=== PATIENT | male | born 1950 | race Hispanic/Latino ===

== ENCOUNTER 2018-07-05 10:40 | Inpatient (IN) | payer MEDICARE, OTHER ==
[2018-07-02 09:43] LABS: BASOPHILS % 0.5 % (0.0-1.0); EOSINOPHILS # (AUTO) 0.2 (0.0-0.4); EOSINOPHILS % 3.1 % (0.0-6.0); HEMATOCRIT 42.5 % (38.2-49.6); HEMOGLOBIN 14.5 g/dL (14.0-18.0); LYMPHOCYTES # (AUTO) 2.3 (1.0-3.2); LYMPHOCYTES % 36.7 % (18.0-39.1); MEAN CORPUSCULAR HGB CONC 34.1 g/dL (31-35); MONOCYTES # (AUTO) 0.6 (0.2-0.8); MONOCYTES % 9.1 % (4.4-11.3); NEUTROPHILS # (AUTO) 3.2 (2.1-6.9); NEUTROPHILS % 50.4 % (38.7-80.0); PLATELET COUNT 230 x10e3/uL (140-360); RED BLOOD COUNT 4.83 x10e6/uL (4.3-5.7); RED CELL DISTRIBUTION WIDTH 12.8 % (11.7-14.4)
--- NOTE | 2018-07-02 09:43 | Diagnostic Imaging Report ---
EXAM: CHEST 2 VIEWS, PA and lateral DATE: 07/02/2018 Time stamp on exam: 9:24 AM INDICATION: Preoperative COMPARISON: None FINDINGS: LINES/TUBES: None LUNGS: No consolidations or edema. PLEURA: No effusions or pneumothorax. HEART AND MEDIASTINUM: Normal size and contour. BONES AND SOFT TISSUES: No acute findings. IMPRESSION: No acute thoracic abnormality. Signed by: Dr. Kervin Urrutia DO on 07/02/2018 9:40 AM
[2018-07-02 09:55] LABS: ANION GAP 10.9 mmol/L (8-16); BLOOD UREA NITROGEN 12 mg/dL (7-26); BUN/CREATININE RATIO 12 (6-25); CALCIUM 9.4 mg/dL (8.4-10.2); CARBON DIOXIDE 28 mmol/L (22-29); CHLORIDE 105 mmol/L (98-107); CREATININE, SERUM 1.02 mg/dL (0.72-1.25); EST GLOMERULAR FILTRATION RATE > 60 ML/MIN (60-); GLUCOSE 109 mg/dL (74-118); POTASSIUM 3.9 mmol/L (3.5-5.1); SODIUM 140 mmol/L (136-145)
[~2018-07-05] VITALS: Ht 167.6 cm; Wt 83.0 kg
--- OUTSIDE RECORDS SUMMARY | 2018-07-05 10:56 | XMS REPORT ---
[facility] Address Unknown Phone Unavailable Care Team Providers Care Intervention Nurse Name Role Phone JOSE ROMERO Unavailable Unavailable Payers Payer Name Policy Type Policy Number Effective Date Expiration Date Problems This patient has no known problems. Allergies, Adverse Reactions, Alerts This patient has no known allergies or adverse reactions. Medications This patient has no known medications. Results Test Description Test Time Test Comments Text Results Atomic Results Result Comments CHEST 2 VIEWS 2018-07-02 09:39:00 [place] [address] Patient Name: Katherin HAN MR #: [id number] : 1950 Age/Sex: 67/M Req #: [id number] Adm Physician: Ordered by: JOSE ROMERO MD Report #: [id number] Location: OR Room/Bed: Procedure: [id number] DX/CHEST 2 VIEWS Exam Date: Exam Time: REPORT STATUS: Signed EXAM: CHEST 2 VIEWS, PA and lateral DATE: 07/02/2018 Time stamp on exam: 9:24 AM INDICATION: Preoperative COMPARISON: None FINDINGS: LINES/TUBES: None LUNGS: No consolidations or edema. PLEURA: No effusions or pneumothorax. HEART AND MEDIASTINUM: Normal size and contour. BONES AND SOFT TISSUES: No acute findings. IMPRESSION: No acute thoracic abnormality. Signed by: Dr. Sotero Urrutia DO on 07/02/2018 9:40 AM Dictated By: SOTERO URRUTIA DO 9 Transcribed By: MARÍA on 07/02/18939 COPY TO: JOSE ROMERO MD
[2018-07-05] MEDS ORDERED: CLINDAMYCIN 600MG / 50ML 0 ML IV ONE ×2 (11:07→11:21)
[2018-07-05] MEDS ORDERED: GENTAMICIN 80MG/NS 100 ML 200 ML IV ONE (11:08)
[2018-07-05] MEDS ORDERED: CEFAZOLIN SOD 1 GM/NS 50ML 50 ML IV ONE (11:08)
[2018-07-05] MEDS ORDERED: CLINDAMYCIN 600MG / 50ML 50 ML IV ONE (11:23)
[2018-07-05] MEDS ORDERED: METHYLENE BLUE 1% INJ 10 ML VIAL INJ ONE (12:44)
[2018-07-05] MEDS ORDERED: ACETAMINOPHEN 1000 MG/100 ML 100 ML IV ONE (15:25)
[2018-07-05] MEDS: D5.45%NS/KCL 20MEQ 1,000 ML IV SCH (16:38)
[2018-07-05] MEDS ORDERED: ONDANSETRON HCL INJ 2MG/ML 2ML 2 MG/ML VIAL IV PRN (16:45)
[2018-07-05] MEDS ORDERED: MORPHINE SULFATE 1 MG/ML 30ML PCA IV PRN (16:45)
[2018-07-05] MEDS ORDERED: NALOXONE HCL INJ 0.4 MG/ML AMP IV PRN (16:45)
[2018-07-05] MEDS ORDERED: DIPHENHYDRAMINE HCL INJ 50 MG/ML VIAL IM PRN (16:45)
[2018-07-05] MEDS ORDERED: DIPHENHYDRAMINE HCL 25 MG CAP PO PRN (16:45)
[2018-07-05] MEDS: DOCUSATE SODIUM 100 MG CAP PO SCH (17:00)
[2018-07-05] MEDS ORDERED: MORPHINE SULFATE 1 MG/ML 30ML PCA ONE (17:14)
[2018-07-05] MEDS ORDERED: MEPERIDINE HCL INJ 25 MG/ML VIAL ONE (17:14)
--- NOTE | 2018-07-05 17:32 | NUR ---
Patient admitted to unit from PACU. Patient is AAOx3. Persian speaking only. Patient is post op radial prostatectomy. Perineal incision noted. Sutures intact. Bloody drainage noted. Lung christianson clear to auscultation. Bowel sounds present but hypoactive. Ramírez catheter in place. Hematuria noted. No c/o pain at this time. Right forearm IV in place. Iv fluids and INVESTMENT COUNSELOR in place. No s/s of distress noted. Patient tolerating clear liquids
[2018-07-05 17:51] VITALS: BP 142/68
[2018-07-05] MEDS ORDERED: INFLUENZA VIRUS VAC SPLIT INJ 0.5 ML SYR IM SCH (17:56)
[2018-07-05] MEDS ORDERED: PNEUMOCOCCAL VACCINE POLYVALENT 23 MCG/0.5 ML VIAL IM SCH (17:56)
[2018-07-05 18:04] VITALS: BP 142/68
[2018-07-05] MEDS ORDERED: SEVOFLURANE INHAL SOLN 250 ML PEN BTL ONE (18:08)
[2018-07-05] MEDS ORDERED: LIDOCAINE HCL 2% LOCAL INJ 5 ML SDV VIAL INJ ONE (18:08)
[2018-07-05] MEDS ORDERED: DEXAMETHASONE SOD PHOS INJ 4 MG/ML VIAL ONE (18:08)
[2018-07-05] MEDS ORDERED: PROPOFOL IV EMULSION 10 MG/ML 20 ML VIAL ONE (18:08)
[2018-07-05] MEDS ORDERED: EPHEDRINE SULFATE INJ 50 MG/10 ML SYR ONE (18:08)
[2018-07-05] MEDS ORDERED: GLYCOPYRROLATE INJ 1MG/ 5 ML SYR ONE (18:08)
[2018-07-05] MEDS ORDERED: NEOSTIGMINE 5 MG/5ML SYR ONE (18:08)
[2018-07-05] MEDS ORDERED: ONDANSETRON HCL INJ 2MG/ML 2ML 2 MG/ML VIAL ONE (18:08)
[2018-07-05] MEDS ORDERED: ROCURONIUM BROMIDE 10 MG/ML 5ML VIAL ONE (18:08)
[2018-07-05] MEDS ORDERED: MIDAZOLAM HCL 2 MG/2 ML VIAL ONE (18:24)
[2018-07-05] MEDS ORDERED: FENTANYL CITRATE/PF 100MCG/2 ML INJ ONE (18:24)
[2018-07-05] MEDS: PIPER-TAZ 3.375 GM 50 ML IV SCH (18:25)
--- NOTE | 2018-07-05 19:00 | NUR ---
RECEIVED PATIENT AAOX3, STABLE CONDITION, DENIES ANY NEEDS AT THIS TIME. BED LOCKED AND IN LOWEST POSITION, CALL LIGHT WITHIN EASY REACH.
[2018-07-05 19:50] VITALS: BP 136/62
[2018-07-05 19:59] LABS: BASOPHILS % 0.1 % (0.0-1.0); EOSINOPHILS % 0.1 % (0.0-6.0); HEMATOCRIT 36.1 % (38.2-49.6); HEMOGLOBIN 12.6 g/dL (14.0-18.0); LYMPHOCYTES % 8.2 % (18.0-39.1); MEAN CORPUSCULAR HGB CONC 34.9 g/dL (31-35); MEAN CORPUSCULAR VOLUME 88.9 fL (81-99); MONOCYTES # (AUTO) 0.4 (0.2-0.8); MONOCYTES % 2.8 % (4.4-11.3); NEUTROPHILS % 88.4 % (38.7-80.0); PLATELET COUNT 209 x10e3/uL (140-360); RED BLOOD COUNT 4.06 x10e6/uL (4.3-5.7); RED CELL DISTRIBUTION WIDTH 12.7 % (11.7-14.4)
[2018-07-05 20:17] LABS: ANION GAP 10.9 mmol/L (8-16); BLOOD UREA NITROGEN 14 mg/dL (7-26); BUN/CREATININE RATIO 15 (6-25); CALCIUM 8.8 mg/dL (8.4-10.2); CARBON DIOXIDE 27 mmol/L (22-29); CHLORIDE 102 mmol/L (98-107); CREATININE, SERUM 0.92 mg/dL (0.72-1.25); EST GLOMERULAR FILTRATION RATE > 60 ML/MIN (60-); GLUCOSE 196 mg/dL (74-118); POTASSIUM 3.9 mmol/L (3.5-5.1); SODIUM 136 mmol/L (136-145)
[2018-07-05 21:00] VITALS: BP 136/62
[2018-07-05] MEDS: CLINDAMYCIN 300MG 50 ML IV SCH (22:37)
[2018-07-05 23:50] VITALS: BP 108/58
[2018-07-06] VITALS (7 sets, daily range): BP systolic 101–124; BP diastolic 55–62
[2018-07-06] MEDS: PIPER-TAZ 3.375 GM 50 ML IV SCH ×3 (01:44→17:26)
[2018-07-06] MEDS: D5.45%NS/KCL 20MEQ 1,000 ML IV SCH (04:02)
[2018-07-06 06:07] LABS: BASOPHILS % 0.1 % (0.0-1.0); HEMATOCRIT 32.3 % (38.2-49.6); HEMOGLOBIN 11.1 g/dL (14.0-18.0); LYMPHOCYTES # (AUTO) 1.8 (1.0-3.2); MEAN CORPUSCULAR HEMOGLOBIN 30.7 pg (28-32); MEAN CORPUSCULAR HGB CONC 34.4 g/dL (31-35); MEAN CORPUSCULAR VOLUME 89.2 fL (81-99); MONOCYTES % 7.2 % (4.4-11.3); NEUTROPHILS % 79.3 % (38.7-80.0); PLATELET COUNT 226 x10e3/uL (140-360); RED BLOOD COUNT 3.62 x10e6/uL (4.3-5.7); RED CELL DISTRIBUTION WIDTH 12.7 % (11.7-14.4)
[2018-07-06] MEDS: CLINDAMYCIN 300MG 50 ML IV SCH (06:17)
[2018-07-06 06:20] LABS: ANION GAP 10.7 mmol/L (8-16); BLOOD UREA NITROGEN 13 mg/dL (7-26); BUN/CREATININE RATIO 12 (6-25); CALCIUM 8.5 mg/dL (8.4-10.2); CARBON DIOXIDE 26 mmol/L (22-29); CHLORIDE 106 mmol/L (98-107); CREATININE, SERUM 1.07 mg/dL (0.72-1.25); EST GLOMERULAR FILTRATION RATE > 60 ML/MIN (60-); GLUCOSE 138 mg/dL (74-118); POTASSIUM 3.7 mmol/L (3.5-5.1); SODIUM 139 mmol/L (136-145)
[2018-07-06] MEDS ORDERED: HYDROCODONE/APAP 7.5MG-325MG 1 EA TAB PO PRN ×2 (08:30→08:45)
[2018-07-06] MEDS ORDERED: KETOROLAC TROMETHAMINE 30 MG/ML VIAL IV PRN ×2 (08:30→08:45)
[2018-07-06] MEDS: SENNOSIDES 8.6 MG TAB PO SCH ×2 (09:21→17:26)
[2018-07-06] MEDS: DOCUSATE SODIUM 100 MG CAP PO SCH ×2 (09:21→17:26)
--- NOTE | 2018-07-06 10:00 | NUR ---
CEREAL SUPERVISOR MORPHINE PUMP DC PER MD ROMERO ORDERS , VERIFIED WASTE WITH RAVEN MANJARREZ INSTRUCTED PT TO CALL FOR PRN MED IF NEEDED
[2018-07-06] MEDS: ACETAMINOPHEN/CODEINE 300MG - 30MG TAB PO PRN ×2 (13:32→20:47)
--- NOTE | 2018-07-06 13:45 | NUR ---
Visit made by the Spiritual Care Department Pastoral Visitor, Yaritza Small. PV provided pastoral presence, prayer, hospitality, and supportive listening. Pastoral Visitor informed pt/family of the scope of [employer] Services and availability. BERNIE GUZMAN Uniform Attendant Spiritual Care Department O: [phone] Pager: [phone] ([phone] + number calling from)
--- NOTE | 2018-07-06 15:52 | NUR ---
Nutrition Screen Note RD Recommendation for Physician: -Continue regular diet as ordered Plan of Care: RD following, monitoring for tolerance and adequacy Nutrition reason for involvement: Nutrition Risk Trigger MST Primary Diagnose(s): prostate cancer s/p prostate resection on 07/05 PMH: no H&P indicated Ht: 66in Wt: 184.01lb BMI: 29.7kg/m2 IBW: 142lb RD Assessment: (07/06) Chart reviewed. Labs and meds reviewed. 67yo M, who was s/p prostate resection 07/05. POD 1. HbA1c at 5.6%. . 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 Pt denied chewing/swallowing problems and nausea/vomiting. Pt reported good appetite with adequate meal intake at 75%. Will continue to monitor and follow. Current Diet: regular diet Malnutrition Evaluation (07/06) The patient does not meet criteria for a specified degree of malnutrition at this time. Will re-evaluate at follow-up as appropriate. Diet Education Needs Assessment: Diet education not indicated. Nutrition Care Level: low Signed: Grecia Valladares, MS, RD, LD
--- NOTE | 2018-07-06 19:00 | NUR ---
RECEIVED PATIENT AAOX3, NO S/S OF DISTRESS OBSERVED, FAMILY MEMBER TO BEDSIDE. DENIES NEEDS AT THIS TIME. BED LOCKED AND IN LOWEST POSITION, CALL LIGHT WITHIN EASY REACH.
[2018-07-07] VITALS (11 sets, daily range): BP systolic 100–138; BP diastolic 47–66
[2018-07-07] MEDS: PIPER-TAZ 3.375 GM 50 ML IV SCH ×3 (02:00→17:28)
[2018-07-07 06:13] LABS: BASOPHILS % 0.3 % (0.0-1.0); EOSINOPHILS # (AUTO) 0.1 (0.0-0.4); EOSINOPHILS % 0.9 % (0.0-6.0); HEMATOCRIT 32.4 % (38.2-49.6); LYMPHOCYTES # (AUTO) 3.6 (1.0-3.2); LYMPHOCYTES % 32.6 % (18.0-39.1); MEAN CORPUSCULAR HEMOGLOBIN 30.6 pg (28-32); MEAN CORPUSCULAR VOLUME 90.3 fL (81-99); MONOCYTES % 8.9 % (4.4-11.3); NEUTROPHILS # (AUTO) 6.3 (2.1-6.9); PLATELET COUNT 201 x10e3/uL (140-360); RED BLOOD COUNT 3.59 x10e6/uL (4.3-5.7); RED CELL DISTRIBUTION WIDTH 13.2 % (11.7-14.4)
[2018-07-07 06:40] LABS: ANION GAP 9.8 mmol/L (8-16); BLOOD UREA NITROGEN 15 mg/dL (7-26); BUN/CREATININE RATIO 14 (6-25); CALCIUM 8.5 mg/dL (8.4-10.2); CARBON DIOXIDE 28 mmol/L (22-29); CHLORIDE 106 mmol/L (98-107); CREATININE, SERUM 1.06 mg/dL (0.72-1.25); EST GLOMERULAR FILTRATION RATE > 60 ML/MIN (60-); GLUCOSE 94 mg/dL (74-118); POTASSIUM 3.8 mmol/L (3.5-5.1); SODIUM 140 mmol/L (136-145)
[2018-07-07] MEDS: SENNOSIDES 8.6 MG TAB PO SCH (09:00)
--- NOTE | 2018-07-07 10:00 | NUR ---
NURSE CALLED TO PT LYING ON FLOOR, PT INFORMED NURSE HE GOT DIZZY FELL BACK AND ASSISTED TO FLOOR, VS 105/69, HR 97, PT ASSISTED UP AND AMBULATED WITH ASSISTANCE TO BED. PT PLACED IN BED AND BECAME UNRESPONSIVE RAPID RESPONSE CALLED, TEAM ARRIVED, DR PINO, NOTIFIED, DR ROMERO AT BEDSIDE, ORDERS RECEIVED AND PLACED IN CHART. PT VS STABLE, BOLUS INFUSED WILL CONTINUE TO MONITOR Addendum: 07/07/18 at 1330 by Carmencita Masters RN FAMILY ASSISTED PT TO FLOOR PER PT REQUEST
[2018-07-07] MEDS ORDERED: SODIUM CHLORIDE 0.9% 1000ML 1,000 ML ONE (10:07)
--- NOTE | 2018-07-07 10:18 | NUR ---
SPOKE WITH KO AT MD COLE'S OFFICE, MADE AWARE OF CONSULT, AWAITING CALL BACK
[2018-07-07] MEDS: DOCUSATE SODIUM 100 MG CAP PO SCH ×2 (10:25→17:28)
--- NOTE | 2018-07-07 10:25 | NUR ---
ASSESSMENT COMPLETE, ANSWERS QUESTIONS APPROPRIATELY, GARCIA TO BSD WITH FLORA URINE NOTED, BOLUS INFUSING TO L HAND 18G DENIES PAIN AT THIS TIME, LILIBETH DRAIN NOTED TO RECTUM, CALL LIGHT IN REACH WILL CONTINUE TO MONITOR
[2018-07-07] MEDS ORDERED: SODIUM CHLORIDE 0.9% 1000ML 500 ML IV ONE (10:45)
--- NOTE | 2018-07-07 11:00 | NUR ---
DSG APPLIED TO RECTUM PER ORDERED,
--- NOTE | 2018-07-07 14:21 | NUR ---
EDUCATED ABOUT IMM, SIGNED, FILED IN CHART, WITH COPY LEFT WITH FAMILY AT BEDSIDE.
--- NOTE | 2018-07-07 15:12 | NUR ---
DSG TO RECTUM CHANGED PER ORDERED, WITH GOLFBALL SIZE BROWNISH DRAINAGE NOTED FROM LILIBETH .
--- NOTE | 2018-07-07 17:31 | NUR ---
dsg to rectum changed, brownish golfball size drainage noted to abd pad, will continue to monitor
--- NOTE | 2018-07-07 18:55 | NUR ---
BED SIDE SHIFT REPORT PERFORMED WITH OFF GOING NURSE Jeremy LACEY RN. PT IS AAOX3, RR EVEN AND NON-LABORED, O2 BY NC AT 2L. NO S/SX OF DISTRESS NOTED. DRESSING TO RECTUM NOTED TO BE CDI. LEFT PT LAYING SEMI FOWLERS IN BED, BED IN LOW LOCKED POSITION, SIDE RAILS UPX2, CALL LIGHT AND PHONE WITHIN REACH.
[2018-07-07 18:56] LABS: BASOPHILS % 0.2 % (0.0-1.0); EOSINOPHILS # (AUTO) 0.1 (0.0-0.4); HEMATOCRIT 32.6 % (38.2-49.6); HEMOGLOBIN 11.2 g/dL (14.0-18.0); LYMPHOCYTES # (AUTO) 2.6 (1.0-3.2); LYMPHOCYTES % 23.8 % (18.0-39.1); MEAN CORPUSCULAR HEMOGLOBIN 30.9 pg (28-32); MEAN CORPUSCULAR HGB CONC 34.4 g/dL (31-35); MEAN CORPUSCULAR VOLUME 90.1 fL (81-99); MONOCYTES # (AUTO) 0.9 (0.2-0.8); MONOCYTES % 8.4 % (4.4-11.3); NEUTROPHILS # (AUTO) 7.3 (2.1-6.9); PLATELET COUNT 209 x10e3/uL (140-360); RED BLOOD COUNT 3.62 x10e6/uL (4.3-5.7); RED CELL DISTRIBUTION WIDTH 13.2 % (11.7-14.4)
[2018-07-07 19:25] LABS: ANION GAP 11.6 mmol/L (8-16); BLOOD UREA NITROGEN 12 mg/dL (7-26); BUN/CREATININE RATIO 12 (6-25); CALCIUM 8.7 mg/dL (8.4-10.2); CARBON DIOXIDE 25 mmol/L (22-29); CHLORIDE 102 mmol/L (98-107); CREATININE, SERUM 1.03 mg/dL (0.72-1.25); EST GLOMERULAR FILTRATION RATE > 60 ML/MIN (60-); GLUCOSE 144 mg/dL (74-118); POTASSIUM 3.6 mmol/L (3.5-5.1); SODIUM 135 mmol/L (136-145)
[2018-07-07] MEDS: ACETAMINOPHEN/CODEINE 300MG - 30MG TAB PO PRN (21:24)
--- NOTE | 2018-07-07 21:24 | NUR ---
ABD PAD TO RECTUM CHANGED AT THIS TIME. INCISION NOTED TO BE CDI, SUTURES INTACT, LILIBETH DRAIN DRAINING BROWN/SEROUS FLUID. 3X2 INCH DRAINAGE NOTED TO ABD PAD.
--- NOTE | 2018-07-07 21:25 | NUR ---
PT SPO2 NOTED TO BE 98% WITH O2 BY NC AT 2L. DECREASE O2 BY NC TO 1L. WILL CONTINUE TO MONITOR.
--- NOTE | 2018-07-07 21:42 | Consultation ---
DATE OF CONSULTATION: 07/07/2018 Cardiology Consultation. REASON FOR CONSULTATION: Syncope. HISTORY OF PRESENT ILLNESS: This is a 67-year-old man, who has a history of prostate cancer, who underwent a radical prostatectomy on the 05 of July. The patient was in the restroom this morning, had a bowel movement and passed gas, amando from a seated position, felt lightheaded, dizzy, grabbed the wall, then lost consciousness. He denies any chest pain, shortness of breath, or palpitations during this episode. The patient also became lightheaded and dizzy upon ambulation back to his bed and potentially had another syncopal episode. He has no prior syncopal episodes of significance. He denies any cardiovascular history. He denies any chest pain, shortness of breath, palpitations, lower extremity swelling, orthopnea, or PND in the past. The patient was noted to be mildly hypotensive during these episodes with a normal glucose, and a 12-lead electrocardiogram showing normal sinus rhythm. REVIEW OF SYSTEMS: A 12-point review of systems was conducted, is negative, otherwise, as stated above in the HPI. PAST MEDICAL HISTORY: Prostate cancer. PAST SURGICAL HISTORY: Radical prostatectomy. FAMILY HISTORY: No premature coronary artery disease or sudden cardiac . SOCIAL HISTORY: No illicit drug use, alcohol use, or tobacco use. ALLERGIES: NO KNOWN DRUG ALLERGIES. MEDICATIONS: See medication reconciliation form. PHYSICAL EXAMINATION: VITAL SIGNS: Temperature is 99.6, heart rate is 84, respirations are 18, blood pressure is 127/59, oxygen saturation 99% on 2 L nasal cannula. GENERAL: Well-appearing male, lying comfortably in bed. HEAD: Normocephalic, atraumatic. EYES: Extraocular muscles are intact. Conjunctivae are clear. NECK: No JVD. No bruits. CARDIOVASCULAR: Regular rate and rhythm. Normal S1 and S2. LUNGS: Clear to auscultation bilaterally. No wheezing or rales. ABDOMEN: Soft, nontender, nondistended. Normoactive bowel sounds. EXTREMITIES: No clubbing, cyanosis, or edema. VASCULAR: 2+ pulses. SKIN: Warm, dry, and intact. NEUROLOGIC: No focal deficits noted. Cranial nerves grossly intact. PSYCHIATRIC: Normal mood and affect. LABORATORY: All laboratory tests were reviewed. A 12-lead electrocardiogram showed normal sinus rhythm. IMPRESSION: 1. Syncope. 2. Orthostatic hypotension. 3. Prostate cancer. 4. Anemia. RECOMMENDATIONS: The patient likely became hypotensive after having a bowel movement, straining, and became orthostatic. Fluid bolus was given. Continue to monitor on telemetry. We will order a 2D echocardiogram. I do not hear any carotid bruits. Continue to monitor H and H as his hemoglobin has dropped since admission. Thank you for the consultation. We will follow along with you. Juan Hare DO BM/MODL /[id number]
[2018-07-08] VITALS (8 sets, daily range): BP systolic 102–157; BP diastolic 50–70
--- NOTE | 2018-07-08 00:11 | NUR ---
DRESSING TO PERINEAL CHANGED. BROWN/SEROUS FLUID NOTED TO DRESSING 2X2 INCH OF DRAINAGE NOTED TO ABD PAD.
[2018-07-08] MEDS: PIPER-TAZ 3.375 GM 50 ML IV SCH ×3 (02:21→18:23)
[2018-07-08 05:56] LABS: BASOPHILS % 0.2 % (0.0-1.0); EOSINOPHILS # (AUTO) 0.2 (0.0-0.4); EOSINOPHILS % 1.7 % (0.0-6.0); HEMATOCRIT 31.9 % (38.2-49.6); LYMPHOCYTES # (AUTO) 2.9 (1.0-3.2); LYMPHOCYTES % 25.4 % (18.0-39.1); MEAN CORPUSCULAR HEMOGLOBIN 31.3 pg (28-32); MEAN CORPUSCULAR HGB CONC 34.5 g/dL (31-35); MEAN CORPUSCULAR VOLUME 90.9 fL (81-99); MONOCYTES # (AUTO) 1.1 (0.2-0.8); MONOCYTES % 9.6 % (4.4-11.3); NEUTROPHILS # (AUTO) 7.2 (2.1-6.9); NEUTROPHILS % 62.6 % (38.7-80.0); PLATELET COUNT 213 x10e3/uL (140-360); RED BLOOD COUNT 3.51 x10e6/uL (4.3-5.7); RED CELL DISTRIBUTION WIDTH 13.3 % (11.7-14.4)
[2018-07-08 06:12] LABS: ANION GAP 9.5 mmol/L (8-16); BLOOD UREA NITROGEN 11 mg/dL (7-26); BUN/CREATININE RATIO 11 (6-25); CALCIUM 8.9 mg/dL (8.4-10.2); CARBON DIOXIDE 27 mmol/L (22-29); CHLORIDE 101 mmol/L (98-107); CREATININE, SERUM 1.02 mg/dL (0.72-1.25); EST GLOMERULAR FILTRATION RATE > 60 ML/MIN (60-); GLUCOSE 106 mg/dL (74-118); POTASSIUM 3.5 mmol/L (3.5-5.1); SODIUM 134 mmol/L (136-145)
[2018-07-08] MEDS: DOCUSATE SODIUM 100 MG CAP PO SCH ×2 (07:42→18:23)
[2018-07-08] MEDS: ACETAMINOPHEN/CODEINE 300MG - 30MG TAB PO PRN ×3 (07:42→23:38)
--- NOTE | 2018-07-08 07:47 | NUR ---
ASSESSMENT COMPLETE NO DISTRESS NOTED, CO PAIN TO BACK, MEDICATED WITH PRN MEDS, R AC 20G NO SS OF INFILTRATION NOTED, NO OTHER CO VOICED CALL LIGHT IN REACH WILL CONTINUE TO MONITOR
--- NOTE | 2018-07-08 07:50 | NUR ---
PT CO NUMBNESS TO RIGHT LEG, SPOKE WITH DR PINO, NEW ORDERS NOTED,
--- NOTE | 2018-07-08 10:02 | Diagnostic Imaging Report ---
Lumbar spine series, 5 views dated 07/08/2018. History: Status post fall with right leg numbness; history of prostate cancer. Comparison: <None available>. Discussion: The soft tissues are unremarkable. No lytic or blastic process. The alignment of the lumbar spine is normal. There is no evidence of fracture, spondylolisthesis or spondylolysis. Minor degenerative spurring of the spine. Disc space narrowing at L4-L5. There are clips in the region of the prostate gland. IMPRESSION: Mild degenerative changes of the spine with significant disc space narrowing at L4-L5. Signed by: Dr. Kervin Urrutia DO on 07/08/2018 9:58 AM
--- NOTE | 2018-07-08 10:05 | NUR ---
PT AMBULATING IN [place] WITH PHYSICAL THERAPY.
--- NOTE | 2018-07-08 10:07 | Diagnostic Imaging Report ---
Exam: AP pelvis with cone-down views of both hips; 5 views total dated 07/08/2018. History: Status post fall with right leg numbness; history of prostate cancer Comparison: None available Findings: There is no fracture or dislocation. Multiple clips overlying the prostate. There is a catheter present within the urethra. Mild joint space narrowing in both hips with spurring of the superior lateral aspect of the acetabula bilaterally. Injection granulomas of the gluteal region. Sclerotic foci involving the subtrochanteric region of the right femoral shaft likely is a bone island. Impression: Mild degenerative changes without acute bony abnormality. Signed by: Dr. Kervin Urrutia DO on 07/08/2018 10:04 AM
--- NOTE | 2018-07-08 10:19 | NUR ---
PT SITTING IN CHAIR, STATES HE IS DIZZY, BECOMES UNRESPONSIVE, PT RAPID CALLED PT TRANSFERRED TO BED WITH ASSISTANCE, TEAM ARRIVED. FAMILY AT BEDSIDE, DR PINO NOTIFIED, ORDERS PLACED IN SYSTEM.
[2018-07-08] MEDS ORDERED: SODIUM CHLORIDE 0.9% 1000ML 2,000 ML IV SCH (10:30)
--- NOTE | 2018-07-08 10:40 | NUR ---
PT RECEIVING 2L BOLUS FOR RAPID RESPONSE ORDERED, LABS DRAWN AND SENT, BLE DOPPLER ORDERED, VS STABLE, WILL CONTINUE TO MONITOR
[2018-07-08 10:52] LABS: MAGNESIUM 2.4 MG/DL (1.3-2.1)
--- NOTE | 2018-07-08 10:52 | NUR ---
ASSESSMENT: Spiritual distress Professor Of Economics responded to Code. Pt's and [id number] in hallway. Pt's expressed emotions thru words and tears. Intervention: Provided pastoral presence and calming presence. Outcome: Pt's family expressed appreciation for support. BERNIE Miranda Spiritual Care Department O: [phone] Pager: [phone] ([phone] number calling from)
[2018-07-08] MEDS: SODIUM CHLORIDE 0.9% 1000ML 1,000 ML IV SCH ×2 (11:00→22:16)
--- NOTE | 2018-07-08 11:00 | NUR ---
DSG CHANGED PER ORDERED, GOLFBALL SIZE DRAINAGE NOTED TO PAD,
[2018-07-08] MEDS: LIDOCAINE 5% PATCH TP SCH (11:30)
--- NOTE | 2018-07-08 11:40 | NUR ---
SPOKE WITH DR. PINO RE: LAB RESULTS, NEW ORDERS NOTED.
--- NOTE | 2018-07-08 12:47 | NUR ---
CASE MANAGEMENT INITIAL ASSESSMENT Nremt to bedside to discuss plan of care with patient/family. CM/SW role and care transitions discussed. Anticipated discharge plan discussed along with duration of care. CM discussed patients right to make decisions in care. CM work hours given. Patient lives: PATIENT LIVES IN 1 STORY HOME WITH ANGEL Admit/Transfer: ED Hospital/ER visits since last admit: NO POA/Emergency contact: ANGEL [place] [phone] Current/Previous Home Health: NONE PCP/Follow-up Care: DR. PRAFUL JORDAN Current/Previous DME: NONE Medications (referring to index hospitalization or the first time you were in the hospital) a. Were changes made in your medications when you were in the hospital on [date of index hospitalization]? Yes No Not sure Explain: Note: If no or not sure, please skip to question d b. Did you understand the changes? Yes No Explain: c. Were you able to obtain your new medications right away? Yes Non/a SNF only Explain: d. Were you able to take your medications like the doctor wanted you to? Yes No Explain: e. Did the hospital give you an accurate, easy to understand list of medications when you left? Yes No n/a SNF only Explain: Scale of 1-10 how comfortable does patient feel with disease management in outpatient setting: Other Services: NONE Employment Status: RETIRED Areas of Concerns: DIZZINESS AND LOSS OF CONSCIOUSNESS Referral Needs: NONE AT THIS TIME Education Needs: NONE AT THIS TIME IMM/DOUGLAS given and signed (if applicable): IMM Goal for discharge: DISCHARGE HOME WITH NO NEEDS CM left business card at the bedside with contact information. Name and number was also written on the patients whiteboard. Patient verbalized understanding of discussion. CM will follow-up with ongoing discharge and transition of care needs.
--- NOTE | 2018-07-08 13:00 | NUR ---
DSG CHANGED PER ORDERED, GOLFBALL SIZE BROWNISH DRAINAGE NOTED,
[2018-07-08] MEDS: MIDODRINE 2.5 MG TAB PO SCH ×2 (14:15→18:22)
[2018-07-08] MEDS ORDERED: SODIUM CHLORIDE 0.9% 1000ML 1,000 ML IV SCH (15:00)
--- NOTE | 2018-07-08 15:00 | NUR ---
DSG CHANGED PER ORDERED, GOLF BALL SIZE BROWNISH DRAINAGE NOTED,
--- NOTE | 2018-07-08 16:30 | Diagnostic Imaging Report ---
Exam: Right knee 3 views History: Pain Comparison: None. Findings: No fracture or malalignment. Mild degenerative arthrosis of the osteophyte formation. Quadriceps enthesophyte. Small joint effusion. Impression: No acute osseous abnormality Mild degenerative arthrosis of the knee. Signed by: Dr. Wilber Huagn M.D. on 07/08/2018 4:26 PM
--- NOTE | 2018-07-08 19:56 | Progress Note ---
DATE: 07/08/2018 Cardiology Progress Note SUBJECTIVE: The patient reportedly had another syncopal episode after completing physical therapy and walking. When he was seated, he evidently lost consciousness. Now, the patient states that he cannot move his left lower extremity due to knee pain. He also reports lower extremity numbness. OBJECTIVE: VITAL SIGNS: Temperature is 99.5, heart rate 74, respirations are 20, blood pressure is 120/56, and ox saturation 99% on room air. GENERAL: He is a well-appearing man, lying comfortably in bed. HEENT: Head is normocephalic, atraumatic. Eyes, the extraocular muscles are intact. Conjunctivae are clear. NECK: No jugular venous distention. No carotid bruits. CARDIOVASCULAR: He has regular rate and rhythm. No murmurs. LUNGS: Clear to auscultation. ABDOMEN: Soft, nontender. EXTREMITIES: There is no edema. He has normal sensation. He has pain upon palpation of the right knee, which appears mildly more swollen than the left knee. CARDIOVASCULAR MEDICATIONS: Reviewed. Telemetry monitoring revealed normal sinus rhythm. Echocardiogram shows preserved left ventricular systolic function and normal valves. Lower extremity venous Doppler showed no deep venous thrombosis. IMPRESSION: 1. Syncope. 2. Knee pain. 3. Orthostatic hypotension. 4. Prostate cancer. 5. Anemia. RECOMMENDATIONS: The patient does not appear to have a cardiovascular cause for his syncope events. The patient has multiple nonspecific symptoms, which do not correlate. We will defer knee pain workup to Primary team. We will check orthostatic vital signs prior to administration. We will continue to follow along. Juan Hare DO BM/MODL /[id number]
--- NOTE | 2018-07-08 23:50 | NUR ---
DRESSING TO RECTUM CHANGED. 3X4 IN DRAINAGE TO DRESSING NOTED.
[2018-07-09] VITALS (9 sets, daily range): BP systolic 97–124; BP diastolic 52–64
[2018-07-09] MEDS: PIPER-TAZ 3.375 GM 50 ML IV SCH ×3 (02:24→17:01)
[2018-07-09 06:00] LABS: BASOPHILS % 0.3 % (0.0-1.0); EOSINOPHILS # (AUTO) 0.4 (0.0-0.4); EOSINOPHILS % 2.9 % (0.0-6.0); HEMATOCRIT 30.4 % (38.2-49.6); HEMOGLOBIN 10.6 g/dL (14.0-18.0); LYMPHOCYTES # (AUTO) 2.5 (1.0-3.2); LYMPHOCYTES % 21.1 % (18.0-39.1); MEAN CORPUSCULAR HEMOGLOBIN 31.6 pg (28-32); MEAN CORPUSCULAR HGB CONC 34.9 g/dL (31-35); MEAN CORPUSCULAR VOLUME 90.7 fL (81-99); MONOCYTES # (AUTO) 1.1 (0.2-0.8); MONOCYTES % 9.4 % (4.4-11.3); NEUTROPHILS # (AUTO) 7.9 (2.1-6.9); NEUTROPHILS % 65.7 % (38.7-80.0); PLATELET COUNT 238 x10e3/uL (140-360); RED BLOOD COUNT 3.35 x10e6/uL (4.3-5.7); RED CELL DISTRIBUTION WIDTH 13.2 % (11.7-14.4)
[2018-07-09 06:25] LABS: ANION GAP 10.1 mmol/L (8-16); BLOOD UREA NITROGEN 11 mg/dL (7-26); BUN/CREATININE RATIO 12 (6-25); CALCIUM 8.7 mg/dL (8.4-10.2); CARBON DIOXIDE 26 mmol/L (22-29); CHLORIDE 107 mmol/L (98-107); CREATININE, SERUM 0.94 mg/dL (0.72-1.25); EST GLOMERULAR FILTRATION RATE > 60 ML/MIN (60-); GLUCOSE 103 mg/dL (74-118); POTASSIUM 4.1 mmol/L (3.5-5.1); SODIUM 139 mmol/L (136-145)
--- NOTE | 2018-07-09 07:12 | NUR ---
Rcvd patient in report this am. Patient is asleep in bed at this time. No s/s of distress noted. Spouse at bedside
[2018-07-09] MEDS: DOCUSATE SODIUM 100 MG CAP PO SCH (08:50)
[2018-07-09] MEDS: LIDOCAINE 5% PATCH TP SCH (08:50)
[2018-07-09] MEDS: ACETAMINOPHEN/CODEINE 300MG - 30MG TAB PO PRN ×2 (08:51→14:51)
[2018-07-09] MEDS: MIDODRINE 2.5 MG TAB PO SCH ×2 (08:51→11:49)
--- NOTE | 2018-07-09 10:58 | NUR ---
R 20g SL removed. catheter tip in tact. pressure dressing applied.
--- NOTE | 2018-07-09 12:23 | NUR ---
Patient is AAox3. Romansh speaking only. Patient is post op prostatectomy. Incision to perineal area clean and dry. Dressing changed this am. No c/o pain in that area. Lung christianson clear to auscultation. Bowel sounds present x4. No edema noted to BLE. Patient c/o pain in his right knee. Pain patch applied. Ramírez catheter in place with green urine. No s/s of distress noted.
--- NOTE | 2018-07-09 14:35 | NUR ---
EDUCATED ABOUT IMM, SIGNED, FILED IN CHART, WITH COPY LEFT WITH FAMILY AT BEDSIDE.
[2018-07-09] MEDS ORDERED: MIDODRINE 2.5 MG TAB PO ONE (14:45)
--- NOTE | 2018-07-09 14:59 | NUR ---
Orthostatic VS obtained: Supine: 94/46, 68. Sittin/54, 80. Standin/54, 87
[2018-07-09] MEDS ORDERED: OMEPRAZOLE 20 MG CAP PO SCH (15:00)
[2018-07-09] MEDS ORDERED: MAGNESIUM HYDROXIDE 30 ML UDC ONE (15:22)
[2018-07-09] MEDS ORDERED: MIDODRINE 2.5 MG TAB ONE (15:22)
[2018-07-09] MEDS: MAGNESIUM HYDROXIDE 30 ML UDC PO PRN (15:27)
--- NOTE | 2018-07-09 15:29 | NUR ---
CM SPOKE TO PATIENT AT BEDSIDE REGARDING ROLLING WALKER NEED. PATIENT GIVEN CHOICE FOR [employer] TO PROVIDE ROLLING WALKER. PATIENT CHOSE [facility]- [facility] [address]. PATIENT SIGNED CHOICE FOR ROLLING WALKE RTO BE PROVIDED BY [employer] [facility] WALKER DELIVERED TO THE BEDSIDE. [employer] FORM FILLED OUT AND STAPLED TO ORDER AND FACESHEET. FORM PLACED AT THE FRONT OF THE CHART FOR DR. PINO TO SIGN. RNMOMO (BEDSIDE NURSE) NOTIFIED. MARIO SPOKE TO PATIENT REGARDING HOME HEALTH ORDERS. PATIENT GIVEN CHOICES FOR HOME HEALTH COMPANIES. PATIENT HOME HEALTH CHOICE SIGNED FOR [facility] AND [employer]. [facility] DOES NOT TAKE PATIENT INSURANCE SO CLINICAL SENT TO [facility]. CHOICE LETTER PLACED IN CHART. CLINICAL SENT TO [facility]. [facility] JCARLOS SCHULTZ [phone] Addendum: 07/09/18 at 1607 by Padmini Cohen CM FORM SIGNED BY DR. PINO AND PLACED IN PACU BASKET WITH OTHER SIGNED FORMS.
[2018-07-09 16:21] LABS: ANION GAP 9.6 mmol/L (8-16); BLOOD UREA NITROGEN 12 mg/dL (7-26); BUN/CREATININE RATIO 13 (6-25); CALCIUM 8.7 mg/dL (8.4-10.2); CARBON DIOXIDE 25 mmol/L (22-29); CHLORIDE 104 mmol/L (98-107); CREATININE, SERUM 0.95 mg/dL (0.72-1.25); EST GLOMERULAR FILTRATION RATE > 60 ML/MIN (60-); GLUCOSE 112 mg/dL (74-118); POTASSIUM 3.6 mmol/L (3.5-5.1); SODIUM 135 mmol/L (136-145)
[2018-07-09] MEDS: SENNA-S TABLET PO SCH (17:01)
[2018-07-09] MEDS: CELECOXIB 200 MG CAP PO SCH (17:01)
[2018-07-09] MEDS: MIDODRINE HCL 5 MG TABLET PO SCH (17:01)
[2018-07-09] MEDS: PANTOPRAZOLE SOD 40 MG TABEC PO SCH (17:01)
[2018-07-09] MEDS ORDERED: MIDODRINE 2.5 MG TAB PO SCH (22:00)
[2018-07-10] VITALS (7 sets, daily range): BP systolic 102–134; BP diastolic 50–60
--- NOTE | 2018-07-10 01:42 | Progress Note ---
DATE: 07/09/2018 Cardiology Progress Note SUBJECTIVE: The patient did not have a syncopal event over the last 24 hours. He feels well. Denies any chest pain, shortness of breath, or palpitations. OBJECTIVE: VITAL SIGNS: Temperature is 98.1, heart rate 74, respirations are 19, blood pressure is 97/64, and oxygen saturation 95% on 2 L nasal cannula. GENERAL: He is well appearing, in no apparent distress. CARDIOVASCULAR: Regular rate and rhythm. LUNGS: Clear to auscultation. ABDOMEN: Soft, nontender, and nondistended. LABORATORY DATA: All laboratory values were reviewed. CARDIOVASCULAR MEDICATIONS: Reviewed. Orthostatic vital signs showed a supine blood pressure 94/46 with a standing blood pressure of 97/54. IMPRESSION: 1. Syncope. 2. Hypotension. 3. Knee pain. 4. Prostate cancer, status post prostatectomy. 5. Anemia. RECOMMENDATIONS: The patient has no cardiovascular cause for his syncopal events other than mild hypotension. No further cardiac workup is required at this point in time. He has had a normal telemetry, ECG, echocardiogram, and lower extremity Doppler study. DO ANABELLA Champagne/MODL /[id number]
[2018-07-10] MEDS: PIPER-TAZ 3.375 GM 50 ML IV SCH ×3 (02:18→18:07)
[2018-07-10] MEDS: ACETAMINOPHEN/CODEINE 300MG - 30MG TAB PO PRN ×2 (03:03→17:08)
[2018-07-10] MEDS: MIDODRINE HCL 5 MG TABLET PO SCH ×3 (05:39→17:07)
[2018-07-10 06:35] LABS: BASOPHILS % 0.3 % (0.0-1.0); EOSINOPHILS # (AUTO) 0.4 (0.0-0.4); EOSINOPHILS % 3.1 % (0.0-6.0); HEMATOCRIT 30.2 % (38.2-49.6); HEMOGLOBIN 10.1 g/dL (14.0-18.0); LYMPHOCYTES # (AUTO) 2.5 (1.0-3.2); LYMPHOCYTES % 21.1 % (18.0-39.1); MEAN CORPUSCULAR HEMOGLOBIN 30.2 pg (28-32); MEAN CORPUSCULAR HGB CONC 33.4 g/dL (31-35); MEAN CORPUSCULAR VOLUME 90.4 fL (81-99); MONOCYTES # (AUTO) 1.1 (0.2-0.8); NEUTROPHILS # (AUTO) 7.8 (2.1-6.9); NEUTROPHILS % 66.1 % (38.7-80.0); PLATELET COUNT 246 x10e3/uL (140-360); RED BLOOD COUNT 3.34 x10e6/uL (4.3-5.7); RED CELL DISTRIBUTION WIDTH 13.1 % (11.7-14.4)
[2018-07-10 07:00] LABS: ANION GAP 10.6 mmol/L (8-16); CALCIUM 8.6 mg/dL (8.4-10.2); CARBON DIOXIDE 25 mmol/L (22-29); CHLORIDE 103 mmol/L (98-107); CREATININE, SERUM 0.96 mg/dL (0.72-1.25); EST GLOMERULAR FILTRATION RATE > 60 ML/MIN (60-); GLUCOSE 108 mg/dL (74-118); POTASSIUM 3.6 mmol/L (3.5-5.1); SODIUM 135 mmol/L (136-145)
[2018-07-10 07:11] LABS: BLOOD UREA NITROGEN 13 mg/dL (7-26); BUN/CREATININE RATIO 14 (6-25)
--- NOTE | 2018-07-10 07:36 | NUR ---
Rcvd patient in report this am. Patient is asleep in bed at this time. No s/s of distress noted
[2018-07-10] MEDS: CELECOXIB 200 MG CAP PO SCH ×2 (08:26→17:07)
[2018-07-10] MEDS: MAGNESIUM HYDROXIDE 30 ML UDC PO PRN (08:26)
[2018-07-10] MEDS: LIDOCAINE 5% PATCH TP SCH (08:26)
[2018-07-10] MEDS: SENNA-S TABLET PO SCH ×2 (08:26→17:07)
[2018-07-10] MEDS: PANTOPRAZOLE SOD 40 MG TABEC PO SCH (08:26)
--- NOTE | 2018-07-10 10:37 | NUR ---
Patient ambulated in hallway and did well. Sat up on the edge of bed for a little while and started to c/o dizziness. Patient laid down and no further s/s of distress noted. Family at bedside and concerned about him potentially going home later
--- NOTE | 2018-07-10 13:40 | Progress Note ---
DATE: 07/10/2018 Cardiology Progress Note SUBJECTIVE: No major events overnight. OBJECTIVE: VITAL SIGNS: Temperature afebrile, pulse 65, respiratory rate 20, blood pressure 134/60, and saturating 96% on 2 L nasal cannula. GENERAL: Well developed, well nourished, in no acute distress. CARDIOVASCULAR: Regular rate and rhythm. No murmurs, rubs, or gallops. LUNGS: Clear to auscultation bilaterally. ABDOMEN: Soft, nontender, nondistended. NEURO and PSYCH: Alert and oriented to person, place, and time. Normal affect. CARDIOVASCULAR MEDICATIONS: Reviewed. TELEMETRY DATA: Reviewed. IMAGING DATA: Reviewed. ASSESSMENT: 1. Syncope. 2. Knee pain. 3. Orthostatic hypotension. 4. Prostate cancer. 5. Anemia. RECOMMENDATIONS: Overall, the patient is doing well. Cardiovascular workup was negative for any explanation for syncope. Okay to be discharged home from cardiovascular standpoint. Thank you for this consult. We will continue to follow. MD JOYCE Kenny/SARA /[id number]
--- NOTE | 2018-07-10 13:48 | NUR ---
Patient sat up for lunch. Patient tolerated sitting up better. Patient informed nurse via translation that he sat more on his side and took the pressure off of his incision and felt better. Will continue to monitor
[2018-07-10] MEDS ORDERED: INFLUENZA VIRUS VAC SPLIT INJ 0.5 ML SYR IM NR (14:45)
[2018-07-10] MEDS ORDERED: PNEUMOCOCCAL VACCINE POLYVALENT 23 MCG/0.5 ML VIAL IM NR (14:45)
--- NOTE | 2018-07-10 15:10 | NUR ---
Removed claudia drain at this time. Removed one stitch from the rectum area. Patient tolerated well. Patient was sitting up and had some dizziness. Patient states "It is getting better per translation." Will continue to monitor.
--- NOTE | 2018-07-10 15:21 | NUR ---
Call placed to Dr. Santiago to inform that patient was still having dizziness at times. Ok to hold discharge until tomorrow. Will continue to monitor
[2018-07-11 00:19] VITALS: BP 103/54
[2018-07-11] MEDS: PIPER-TAZ 3.375 GM 50 ML IV SCH ×2 (02:01→10:01)
[2018-07-11] MEDS ORDERED: INFLUENZA VIRUS VAC SPLIT INJ 0.5 ML SYR IM ONE (05:00)
[2018-07-11 05:11] VITALS: BP 98/56
--- NOTE | 2018-07-11 05:27 | NUR ---
PT RESTING IN BED WITH NO S/S OF DISTRESS.RESPIRATIONS EVEN/NON LABORED.TAUGHT PT AND TO CHANGE BETWEEN LEG BAG/BEDSIDE BAG,AND TO EMPTY THE DRAINAGE BAG.PT AND VERBALIZED UNDERSTANDING.GARCIA CATHETER CARE PRINTED HANDOUT GIVEN IN MALAYSIAN.PT HAD NO C/O DIZZINESS THIS SHIFT.BED IN LOWEST/LOCKED POSITION.CALL LIGHT WITHIN EASY REACH.WILL CONTINUE TO MONITOR.
[2018-07-11] MEDS ORDERED: PNEUMOCOCCAL VACCINE POLYVALENT 23 MCG/0.5 ML VIAL IM NR (05:41)
[2018-07-11] MEDS: MIDODRINE HCL 5 MG TABLET PO SCH (06:00)
--- NOTE | 2018-07-11 07:02 | NUR ---
REPORT GIVEN TO ONCOMING NURSE,WALKING ROUNDS MADE.PT RESTING IN BED WITH NO S/S OF DISTRESS.
--- NOTE | 2018-07-11 07:17 | NUR ---
Rcvd patient in report this am. patient is awake in bed at this time. No s/s of distress noted. Patient to discharge home today
[2018-07-11 07:57] VITALS: BP 120/55
[2018-07-11] MEDS: PANTOPRAZOLE SOD 40 MG TABEC PO SCH (09:00)
[2018-07-11] MEDS: LIDOCAINE 5% PATCH TP SCH (09:00)
[2018-07-11] MEDS: CELECOXIB 200 MG CAP PO SCH (09:00)
[2018-07-11] MEDS: SENNA-S TABLET PO SCH (09:00)
[2018-07-11 10:02] VITALS: BP 120/55
--- NOTE | 2018-07-11 10:30 | NUR ---
L AC, 18g removed. Catheter tip intact. Pressure dressing applied.
[2018-07-11] MEDS ORDERED: TYLENOL WITH C1 EACH PO (10:31)
[2018-07-11] MEDS ORDERED: MOBIC15 MG PO (10:32)
[2018-07-11] MEDS ORDERED: COLACE100 MG PO (10:32)
[2018-07-11] MEDS ORDERED: LEVAQUIN500 MG PO (10:32)
[2018-07-11] MEDS ORDERED: OMEPRAZOLE40 MG PO (10:33)
[2018-07-11] MEDS ORDERED: MIDODRINE HCL2.5 MG PO (10:33)
[2018-07-11] MEDS ORDERED: SENNA S TABLET1 EACH PO (10:34)
--- NOTE | 2018-07-11 11:02 | NUR ---
Patient discharged from facility with home health. Patient taken by wheelchair with staff. Reviewed medications, follow-up visits with doctors, and instructions for self care.
--- NOTE | 2018-09-01 04:21 | Operative Report ---
DATE OF PROCEDURE: 07/05/2018 SURGEON: Bruno Snyder MD PREOPERATIVE DIAGNOSIS: Prostate cancer. POSTOPERATIVE DIAGNOSIS: Prostate cancer. OPERATION PERFORMED: Complicated radical perineal prostatectomy made complicated by anatomical concerns surrounding the prostate. PUBLICATIONS PRODUCTION SUPERVISOR: Bubba Snyder MD. COMPLICATIONS: None. CLINICAL SUMMARY: Mr. Darrius Edmonds is a 67-year-old man, was diagnosed with prostate cancer. He initially underwent plans to proceed with radiotherapy. The patient however changed his mind and elected to proceed with a radical prostatectomy. He is aware of the risks of bleeding, infection, injury to adjacent structures, incontinence, impotence, incomplete cancer resection, need for additional procedures and elected to proceed. OPERATIVE PROCEDURE IN DETAIL: Informed consent was verified. Mr. Darrius Edmonds was properly identified, taken to the operating room, placed on the operating table in supine position. Anesthesia was uneventfully begun. The patient was then carefully gently repositioned in a modified exaggerated lithotomy position with all pressure points carefully well padded. His abdomen, genitalia, perineum and buttocks were shaved, prepared and draped in usual sterile fashion. A curvilinear incision was then made from just inside each ischial tuberosity to the midpoint of the perineum. This incision was carried through all layers of the perineum. The perineal body was divided, careful dissection around the rectum was carried out and intersphincteric approach was utilized. Once we incised the " " we exposed the apex of the prostate and the membranous urethra, carefully dissected from the prostate, we ligated and divided the ampulla of the vas. We also isolated the seminal vesicles and clipped the seminal vesicular arteries bilaterally. We then replaced the previously placed curved Lowsley retractor following incision of the posterior membranous urethra at the level of the prostatic apex. We then replaced that with a straight Lowsley retractor and proceeded with incising. Once the curved Lowsley retractor was removed, we incised the urethra anteriorly at the level of the prostatic apex, utilized a straight Lowsley retractor to further dissect out the prostate. We then replaced the Lowsley with Ramírez catheter to allow us to carry out the bladder neck dissection, trying to preserve as much of the bladder neck fibers as possible without risking the integrity of the cancer nature of the operation. Once all this dissection was carried out and the prostate was removed from the field, copious irrigation was performed. We reconstructed the posterior bladder neck with [id number] sutures. We identified both ureteral orifices. After copiously irrigating, we completed the urethrovesical anastomosis over a catheter. Of course, we replaced the catheter prior to tying down the final sutures. The 2-0 Monocryl sutures were utilized in interrupted fashion. A total of a dozen sutures were utilized in performing this watertight anastomosis. Once the anastomosis was complete, we carefully reexamined the rectum which was not injured in any way. A [place] drain was placed in such a fashion as to drain both areas that were lateral to the prostate. We secured the drain to the corner of the incision with a suture. We then approximated the perineal body with Vicryl suture. We also approximated the midline fascia with heavy Vicryl suture. The subcutaneous layer was approximated with Vicryl suture and the skin was approximated with interrupted 3-0 chromic sutures in vertical mattress fashion. The patient was carefully and gently repositioned in the supine position. The catheter was thoroughly irrigated and there were no clots within the bladder. Dressings were applied and the patient was uneventfully reversed from anesthesia and taken to the recovery room in stable condition. There were no complications to the procedure. The patient tolerated the procedure well. Sponge, needle and instrument counts were of course correct x2 at the end of the case and for the estimated blood loss, please refer to the anesthetic record. We will proceed with routine postoperative care and of course ongoing urologic followup. Bruno Snyder MD [place]/MODL /[id number] cc: MD Maureen Simpson MD
== END 2018-07-11 11:00 | disposition home health service (06) | DRG 707 ==
LOC: OR 10:40 → PACU V 16:44 → MED/SURG 17:33
PROVIDERS: ADMIT Internal Medicine; ATTEND Internal Medicine
PROC: 0TB Urinary System, Excision (ICD-10-PCS; 2018-07-05)
PROC: 0VT00ZZ Resection of Prostate, Open Approach (ICD-10-PCS; principal; 2018-07-05 13:00)
DX: C61 Malignant neoplasm of prostate (principal); E87.1 Hypo-osmolality and hyponatremia; I95.1 Orthostatic hypotension; D64.9 Anemia, unspecified; N40.1 Benign prostatic hyperplasia with lower urinary tract symptoms; R39.14 Feeling of incomplete bladder emptying; E29.1 Testicular hypofunction
CPT/HCPCS: 36415; 71046; 72110; 73522; 80048; 82948; 83036; 83735; 84100; 84443; 85025; 85379; 86850; 86900; 88305; 88309; 90732; 93005; 93306; 93970; 97139; J0690; J1100; J1580; J2001; J2175; J2250; J2270; J2405; J2543; J7030

== ENCOUNTER 2018-07-23 11:04 | Inpatient (IN) | payer MEDICARE, OTHER ==
[~2018-07-23] VITALS: Ht 167.6 cm; Wt 83.0 kg
[~2018-07-23 11:04] MED LIST changes: -CEFUROXIME500 MG PO; -IOTHALAMATE MEGLUMINE 17.20% 250 ML BTL ONE
[2018-07-23 11:58] LABS: BASOPHILS % 0.3 % (0.0-1.0); HEMATOCRIT 35.2 % (38.2-49.6); HEMOGLOBIN 11.4 g/dL (14.0-18.0); LYMPHOCYTES # (AUTO) 1.7 (1.0-3.2); LYMPHOCYTES % 10.7 % (18.0-39.1); MEAN CORPUSCULAR HEMOGLOBIN 29.7 pg (28-32); MEAN CORPUSCULAR HGB CONC 32.4 g/dL (31-35); MEAN CORPUSCULAR VOLUME 91.7 fL (81-99); MONOCYTES # (AUTO) 1.1 (0.2-0.8); NEUTROPHILS # (AUTO) 12.8 (2.1-6.9); NEUTROPHILS % 81.4 % (38.7-80.0); PLATELET COUNT 373 x10e3/uL (140-360); RED BLOOD COUNT 3.84 x10e6/uL (4.3-5.7); RED CELL DISTRIBUTION WIDTH 13.7 % (11.7-14.4)
[2018-07-23 12:13] LABS: INR 1.11; PROTHROMBIN TIME 14.8 seconds (11.9-14.5)
[2018-07-23 12:21] LABS: ALBUMIN 3.4 g/dL (3.5-5.0); ALBUMIN/GLOBULIN RATIO 0.7 (0.8-2.0); ANION GAP 13.7 mmol/L (8-16); CALCIUM 8.6 mg/dL (8.4-10.2); CREATININE, SERUM 1.25 mg/dL (0.72-1.25); POTASSIUM 3.7 mmol/L (3.5-5.1)
--- NOTE | 2018-07-23 12:50 | NUR ---
FALLON--CLERK MANAGER #[id number] ON THE LANG. LINE TO EXPLAIN TO PT THE P.O.C. AND THE NEED FOR A URINE SAMPLE
[2018-07-23] MEDS ORDERED: SODIUM CHLORIDE 0.9% 1000ML 1,000 ML IV SCH (14:00)
[2018-07-23 14:34] LABS: BILIRUBIN,URINE NEGATIVE (NEGATIVE); CLARITY,URINE SL CLOUDY (CLEAR); COLOR,URINE STRAW (YELLOW); KETONES,URINE NEGATIVE (NEGATIVE); LEUKOCYTE ESTERASE ,URINE 2+ (NEGATIVE); NITRITE,URINE POSITIVE (NEGATIVE); PROTEIN,URINE DIPSTICK 2+ (NEGATIVE); URINE UROBILINOGEN 0.2 mg/dL (0.2 - 1)
[2018-07-23 14:44] LABS: BACTERIA,URINE MANY /HPF
[2018-07-23] MEDS ORDERED: ONDANSETRON HCL INJ 2MG/ML 2ML 2 MG/ML VIAL IV PRN (15:30)
[2018-07-23] MEDS ORDERED: MORPHINE SULFATE 2 MG/ML SYR 1ML IV PRN (15:30)
[2018-07-23] MEDS ORDERED: MORPHINE SULFATE INJ 4 MG/ML INJ 1ML IV PRN (15:45)
[2018-07-23] MEDS: SODIUM CHLORIDE 0.9% 1000ML 1,000 ML IV SCH ×2 (16:57→23:24)
[2018-07-23] MEDS: MEROPENEM 1GM 100 ML IV SCH (16:58)
--- NOTE | 2018-07-23 18:42 | NUR ---
PT TO THE ROOM AT THIS TIME. VITALS WNL, PT DENIES NEEDS AT THIS TIME.
[2018-07-23] MEDS ORDERED: ACETAMINOPHEN 325 MG TAB PO PRN (18:45)
[2018-07-23 18:50] VITALS: BP 160/70
[2018-07-23 19:20] VITALS: BP 134/61
[2018-07-23 19:58] VITALS: BP_SYST 134; BP_SYST 160; BP_DIAS 61; BP_DIAS 70
[2018-07-23] MEDS ORDERED: MEROPENEM 1GRAM 1 GM in SODIUM CHLORIDE 0.9% 100 ML 100 ML IV SCH (21:00)
[2018-07-24] VITALS (7 sets, daily range): BP systolic 121–136; BP diastolic 57–63
[2018-07-24] MEDS: MEROPENEM 1GM 100 ML IV SCH ×2 (04:37→16:00)
[2018-07-24 06:22] LABS: BASOPHILS % 0.1 % (0.0-1.0); EOSINOPHILS % 0.2 % (0.0-6.0); HEMATOCRIT 30.5 % (38.2-49.6); HEMOGLOBIN 9.9 g/dL (14.0-18.0); LYMPHOCYTES % 14.4 % (18.0-39.1); MEAN CORPUSCULAR HEMOGLOBIN 29.7 pg (28-32); MEAN CORPUSCULAR HGB CONC 32.5 g/dL (31-35); MEAN CORPUSCULAR VOLUME 91.6 fL (81-99); MONOCYTES % 7.7 % (4.4-11.3); NEUTROPHILS # (AUTO) 10.4 (2.1-6.9); NEUTROPHILS % 77.1 % (38.7-80.0); PLATELET COUNT 312 x10e3/uL (140-360); RED BLOOD COUNT 3.33 x10e6/uL (4.3-5.7); RED CELL DISTRIBUTION WIDTH 13.4 % (11.7-14.4)
[2018-07-24 06:47] LABS: ANION GAP 10.5 mmol/L (8-16); BLOOD UREA NITROGEN 13 mg/dL (7-26); BUN/CREATININE RATIO 15 (6-25); CALCIUM 8.2 mg/dL (8.4-10.2); CARBON DIOXIDE 22 mmol/L (22-29); CHLORIDE 108 mmol/L (98-107); CREATININE, SERUM 0.85 mg/dL (0.72-1.25); EST GLOMERULAR FILTRATION RATE > 60 ML/MIN (60-); GLUCOSE 113 mg/dL (74-118); POTASSIUM 3.5 mmol/L (3.5-5.1); SODIUM 137 mmol/L (136-145)
--- NOTE | 2018-07-24 07:05 | NUR ---
POC discussed in Croatian. Patient verbalized understanding. at the bedside. Patient without any complaints voiced.
--- NOTE | 2018-07-24 07:09 | NUR ---
REPORT GIVEN TO ONCOMING NURSE.PT RESTING IN BED WITH NO S/S OF DISTRESS.
[2018-07-24] MEDS ORDERED: ACETAMINOPHEN/CODEINE 300MG - 30MG TAB PO PRN (08:45)
[2018-07-24] MEDS: SENNA-S TABLET PO SCH ×2 (09:00→17:01)
[2018-07-24] MEDS: SODIUM CHLORIDE 0.9% 1000ML 1,000 ML IV SCH ×3 (09:06→23:19)
[2018-07-24] MEDS: MIDODRINE HCL 5 MG TABLET PO SCH ×3 (09:15→17:25)
[2018-07-24] MEDS: PANTOPRAZOLE SOD 40 MG TABEC PO SCH (09:15)
[2018-07-24] MEDS ORDERED: MIDODRINE 2.5 MG TAB PO SCH (14:00)
--- NOTE | 2018-07-24 15:10 | NUR ---
Patient lives: Patient lives with Admit/Transfer: Admit Hospital/ER visits since last admit: no POA/Emergency contact: Lisa Rizo Current/Previous Home Health: No PCP/Follow-up Care: Maureen Rascon MD Current/Previous DME: rolling walker Medications (referring to index hospitalization or the first time you were in the hospital) a. Were changes made in your medications when you were in the hospital on [date of index hospitalization]? Yes No Not sure Explain: Note: If no or not sure, please skip to question d b. Did you understand the changes? Yes No Explain: c. Were you able to obtain your new medications right away? Yes No n/a SNF only Explain: d. Were you able to take your medications like the doctor wanted you to? Yes No Explain: e. Did the hospital give you an accurate, easy to understand list of medications when you left? Yes No n/a SNF only Explain: Scale of 1-10 how comfortable does patient feel with disease management in outpatient setting: Other Services: Employment Status: Retired Areas of Concerns: Referral Needs: Education Needs: IMM/MISAEL given and signed (if applicable): IMM signed
--- NOTE | 2018-07-24 17:10 | NUR ---
Dr. gaspar making rounds at bedside. Barbra exercises provided in Estonian
[2018-07-25] VITALS (7 sets, daily range): BP systolic 119–140; BP diastolic 58–65
[2018-07-25] MEDS: MEROPENEM 1GM 100 ML IV SCH (04:58)
[2018-07-25 05:28] LABS: BASOPHILS % 0.3 % (0.0-1.0); EOSINOPHILS # (AUTO) 0.4 (0.0-0.4); HEMATOCRIT 28.3 % (38.2-49.6); HEMOGLOBIN 9.2 g/dL (14.0-18.0); LYMPHOCYTES # (AUTO) 2.7 (1.0-3.2); LYMPHOCYTES % 29.4 % (18.0-39.1); MEAN CORPUSCULAR HEMOGLOBIN 30.1 pg (28-32); MEAN CORPUSCULAR HGB CONC 32.5 g/dL (31-35); MEAN CORPUSCULAR VOLUME 92.5 fL (81-99); MONOCYTES # (AUTO) 0.9 (0.2-0.8); MONOCYTES % 9.2 % (4.4-11.3); NEUTROPHILS # (AUTO) 5.3 (2.1-6.9); NEUTROPHILS % 56.9 % (38.7-80.0); PLATELET COUNT 272 x10e3/uL (140-360); RED BLOOD COUNT 3.06 x10e6/uL (4.3-5.7); RED CELL DISTRIBUTION WIDTH 13.4 % (11.7-14.4)
[2018-07-25 05:50] LABS: ANION GAP 8.6 mmol/L (8-16); BLOOD UREA NITROGEN 10 mg/dL (7-26); BUN/CREATININE RATIO 12 (6-25); CALCIUM 8.1 mg/dL (8.4-10.2); CARBON DIOXIDE 23 mmol/L (22-29); CHLORIDE 109 mmol/L (98-107); CREATININE, SERUM 0.82 mg/dL (0.72-1.25); EST GLOMERULAR FILTRATION RATE > 60 ML/MIN (60-); GLUCOSE 102 mg/dL (74-118); POTASSIUM 3.6 mmol/L (3.5-5.1); SODIUM 137 mmol/L (136-145)
--- NOTE | 2018-07-25 07:15 | NUR ---
BEDSIDE ROUNDING COMPLETE. ASSUMED CARE OF PATIENT. AT BEDSIDE.
--- NOTE | 2018-07-25 07:22 | NUR ---
REPORT GIVEN TO ONCOMING NURSE.PT RESTING IN BED WITH NO S/S OF DISTRESS.
--- NOTE | 2018-07-25 09:00 | NUR ---
PATIENT HAS BEEN ABLE TO TAKE HIS MEDS WITH NO DIFFICULTIES, THE IV IS PATENT, AND THE FLUIDS ARE INFUSING.
[2018-07-25] MEDS: SODIUM CHLORIDE 0.9% 1000ML 1,000 ML IV SCH (10:00)
[2018-07-25] MEDS: PANTOPRAZOLE SOD 40 MG TABEC PO SCH (10:00)
[2018-07-25] MEDS: SENNA-S TABLET PO SCH ×2 (10:00→17:34)
[2018-07-25] MEDS: MIDODRINE HCL 5 MG TABLET PO SCH ×2 (10:00→14:01)
[2018-07-25] MEDS ORDERED: CEFAZOLIN SOD 1 GM/NS 50ML 50 ML IV SCH (12:00)
--- NOTE | 2018-07-25 12:00 | NUR ---
THE PATIENT HAS BATHED AND IS SITTING AT THE BEDSIDE. THE PATIENTS IS AT THE BEDSIDE. PATIENT DENIES PAIN
--- NOTE | 2018-07-25 15:00 | NUR ---
IV ANTIBIOTIC INFUSED WITH NO ISSUES, THE PATIENT HAS NO COMPLAINTS OF PAIN
--- NOTE | 2018-07-25 16:05 | NUR ---
Visit made by the Spiritual Care Department Pastoral Visitor, Eddie Burks. PV provided pastoral presence, hospitality, and supportive listening. Pastoral Visitor informed pt/family of the scope of [employer] and availability. BERNIE GUZMAN [employer] Spiritual Care Department O: [phone] Pager: [phone] ([phone] number calling from)
--- NOTE | 2018-07-25 17:00 | NUR ---
DR. ROMERO DISCHARGED THE PATIENT, WILL CALL DR. PINO FOR ORDERS.
[2018-07-25] MEDS ORDERED: CEFUROXIME500 MG PO (19:26)
--- NOTE | 2018-07-25 19:59 | NUR ---
PATIENT DISCHARGED HOME. TOOK WHEELCHAIR TO [employer] VEHICLE. DC INSTRUCTIONS GIVEN TO PATIENT VIA FAMILY AT THE BEDSIDE. THE WRITTEN RX AND INSTRUCTIONS WERE IN EQUATORIAL GUINEAN AND GIVEN VERBALLY IN EQUATORIAL GUINEAN. THE PATIENT VERBALIZED UNDERSTANDING IN EQUATORIAL GUINEAN. PIV REMOVED FROM RIGHT FOREARM WITH NO PROBLEMS NO BLEEDING NOTED
--- NOTE | 2018-07-26 12:01 | History and Physical ---
CHIEF COMPLAINT: Recurrent urinary tract infection, prostatitis and resistant bacteria. HISTORY OF PRESENT ILLNESS: The patient is a 67-year-old male, who came in with increasing urinary infection, nausea and vomiting. Urinalysis showed 4+ blood, 2+ leukocyte esterase, many bacteria. The patient had previous prostate surgery in early July 2018. The patient is stable. He had recurrent bladder infection. At this time, he came in with leukocytosis. His WBC was 15.6 thousand. The patient's urinalysis is significantly dark with infection. The patient is admitted. Meropenem initiated. The patient is pending for further evaluation by Dr. Bruno Snyder. PAST MEDICAL HISTORY: Prostate cancer with radical prostatectomy. Recurrent urinary tract infection. SOCIAL HISTORY: The patient does not smoke or use alcohol. No recreational drug use. ALLERGIES: NO KNOWN ALLERGIES. MEDICATIONS: Home medication list is reviewed. He is on Levaquin, meloxicam, midodrine, omeprazole and senna. PHYSICAL EXAMINATION: VITAL SIGNS: Temperature is 99, blood pressure 121/62, pulse rate is 78, respiration 18. GENERAL: The patient is not in acute distress. He is awake. HEENT: Normocephalic, atraumatic. Anicteric. NECK: Supple grossly. PULMONARY: Diminished breath sounds bilaterally CARDIOVASCULAR: S1, S2. Regular rate and rhythm. ABDOMEN: Soft. Some tenderness in the suprapubic area. EXTREMITIES: No gross cyanosis or edema. NEUROLOGIC: No gross focal deficit. LABORATORY DATA: Sodium is 137, potassium 3.5, chloride 108, bicarb 22, BUN 13, creatinine 0.8, glucose 113. WBC is 15.6, hemoglobin is 9.9, hematocrit 30.5, platelets is 312. IMPRESSION: 1. Cystitis, urinary tract infection with recent radical prostatectomy. The patient had urinary retention. 2. Nausea and vomiting with fever. 3. History of prostate cancer with radical prostatectomy. 4. Orthostasis hypotension. PLAN: Continue home medication, meropenem for now. Repeat lab work. PT/OT. Check urine culture. Consultation with Dr. Bruno Snyder. MD CHANG Sauer/SARA /[id number]
== END 2018-07-26 07:38 | disposition home or self-care (01) | DRG 690 ==
LOC: ER 11:04 → ERHOLD 15:28 → IMCU 18:39 → OBSVTOIN 07-24 08:45
PROVIDERS: ADMIT Internal Medicine; ATTEND Internal Medicine
DX: N30.20 Other chronic cystitis without hematuria (principal); N41.9 Inflammatory disease of prostate, unspecified; Z85.46 Personal history of malignant neoplasm of prostate; Z90.79 Acquired absence of other genital organ(s); I95.1 Orthostatic hypotension; D64.9 Anemia, unspecified; R32 Unspecified urinary incontinence; B96.20 Unspecified Escherichia coli [E. coli] as the cause of diseases classified elsewhere; Z16.23 Resistance to quinolones and fluoroquinolones
CPT/HCPCS: 36415; 80048; 80053; 81001; 85025; 85610; 87086; 87186; 93005; 99284; G0378; J0690; J2185; J7030

== ENCOUNTER → 2018-07-23 | Outpatient (CLI) | payer MEDICARE, OTHER ==
[~2018-07-23] MED LIST: CEFUROXIME500 MG PO; COLACE100 MG PO; IOTHALAMATE MEGLUMINE 17.20% 250 ML BTL ONE; LEVAQUIN500 MG PO; MIDODRINE HCL2.5 MG PO; MOBIC15 MG PO; OMEPRAZOLE40 MG PO; SENNA S TABLET1 EACH PO; TYLENOL WITH C1 EACH PO
--- NOTE | 2018-07-23 12:37 | Diagnostic Imaging Report ---
Fluoroscopic cystogram HISTORY: Malignant neoplasm of the prostate status post prostatectomy, feeling of incomplete bladder emptying. Query leak at prostatic urethral anastomosis. DIAMOND PICKER: Hue Ramirez MD Comparison: Pelvis radiograph 07/08/2018. Procedure: A total of 150 cc of water soluble gastrografin contrast was administered through the existing Ramírez catheter. Multiple AP and oblique fluoroscopic images were obtained. Subsequently the Ramírez catheter was removed and the patient voided. Repeat AP and oblique fluoroscopic radiographs were obtained. Radiation Exposure: Fluoroscopy Time: 1 minutes Radiation dose: 58.7 mGy DISCUSSION: Initial conventions reservationist demonstrated multiple clips overlying the lower pelvis. No acute osseous abnormality. Contrast administered into the bladder via the Ramírez catheter demonstrates no evidence of leak at the prostatic urethral anastomosis. Post voiding radiographs demonstrates no residual contrast within the bladder and no evidence of leak. IMPRESSION: No evidence of leak at the prostatic urethral anastomosis. Ramírez catheter was removed. Signed by: Dr. Hue Ramirez MD on 07/23/2018 12:34 PM
== END ==
LOC: DX 09:06
PROVIDERS: ATTEND Urology
DX: C61 Malignant neoplasm of prostate (principal); R39.14 Feeling of incomplete bladder emptying
CPT/HCPCS: 74430; Q9958